=== PATIENT | male | born 1975 | race Caucasian/White ===

== ENCOUNTER 2017-11-05 11:37 | Emergency (ER) | payer BC ==
[2017-11-05 13:09] LABS: Absolute Lymphocytes (CBC) 1.8 K/uL (0.7-4.9); Absolute Monocytes 0.5 K/uL (0.1-1.3); Basophils % 0.7 % (0-1.3); Eosinophils % 1.1 % (0-4.4); Hematocrit 49.9 % (39.6-49.0); Lymphocytes % 32.7 % (15.3-44.8); MCH 31.8 pg (27.0-35.0); MCV 93.7 fL (80-100); MPV 8.2 fL (7.6-11.3); RBC Red Blood Cell Count 5.33 M/uL (4.33-5.43)
[2017-11-05 13:12] LABS: Bicarbonate 30 mEq/L (21-31); Glucose Level 95 mg/dL (65-120); Lipase 30 U/L (22-51); Potassium 3.8 mEq/L (3.6-5.0); Sodium Level 140 mEq/L (135-145)
[2017-11-05 13:17] LABS: ALT/SGPT 26 IU/L (10-60); AST/SGOT 47 IU/L (10-42); Albumin 4.4 g/dL (3.2-5.5); Alkaline Phosphatase 92 IU/L (42-121); BUN Blood Urea Nitrogen 9 mg/dL (6-20); Bilirubin Direct 0.1 mg/dL (0-0.2); Bilirubin Total 0.6 mg/dL (0.3-1.2); Protein, Total 7.8 g/dL (6.0-8.3)
--- NOTE | 2017-11-05 13:56 | ER ---
Nurse's Notes [facility] Name: Gio Aguillon Age: 42 yrs Sex: Male : 1975 Arrival Date: 11/05/2017 Time: 11:41 Bed 20 Private MD: Diagnosis: Gastrointestinal hemorrhage, unspecified Presentation: 11/05 11:58 Presenting complaint: Patient states: "I do drink a whole lot and they said that I lk1 needed to stop that." Significant other states: "For years he has had a lot of bleeding. They say he had hemorrhoids, but I'm telling you he does not. The has had a lot more bleeding that is bright red recently and his blood pressure is high.". Transition of care: patient was not received from another setting of care. Onset of symptoms is unknown. Care prior to arrival: None. 11:58 Method Of Arrival: Ambulatory lk1 11:58 Acuity: WILLIAM 3 lk1 Triage Assessment: 12:01 General: Appears in no apparent distress. Behavior is calm, cooperative, appropriate lk1 for age. Pain: Complains of pain in abdomen Pain currently is 5 out of 10 on a pain scale. Quality of pain is described as burning. GI: Abdomen is non-distended, Reports rectal bleeding. Historical: - Allergies: 12:00 Latex, Natural Rubber; lk1 - PMHx: 12:00 hemorrhoids; etoh abuse; lk1 - PSHx: 12:00 None; lk1 - Immunization history:: Adult Immunizations up to date. - Social history:: Smoking status: Patient uses tobacco products, smokes one pack cigarettes per day. Screenin:01 Abuse screen: Denies threats or abuse. Nutritional screening: No deficits noted. em Tuberculosis screening: No symptoms or risk factors identified. Fall Risk None identified. Assessment: 12:12 General: Appears in no apparent distress. comfortable, Behavior is calm, cooperative, em anxious. Pain: Complains of pain in right upper quadrant and left upper quadrant Pain currently is 5 out of 10 on a pain scale. Quality of pain is described as pressure, Pain began 2-3 days ago. Neuro: Level of Consciousness is awake, alert, obeys commands, Oriented to person, place, time, situation. Cardiovascular: Capillary refill < 3 seconds Patient's skin is warm and dry. Respiratory: Airway is patent Respiratory effort is even, unlabored, Respiratory pattern is regular, symmetrical. GI: Abdomen is flat, Bowel sounds present X 4 quads. Abd is soft and non tender X 4 quads. Reports bloody stool, reports drinking a lot on days off, has had rectal bleeding for over 4 years, but got worse the past few days, denies dizziness or lightheaded. : No signs and/or symptoms were reported regarding the genitourinary system. EENT: No signs and/or symptoms were reported regarding the EENT system. Derm: Skin is intact, Skin is pink, warm \\T\\ dry. Musculoskeletal: Range of motion: intact in all extremities. 12:15 General: The previous assessment is accurate, call light remains within reach. . ss 13:10 Reassessment: Patient appears in no apparent distress at this time. Patient and/or em family updated on plan of care and expected duration. Pain level reassessed. Patient is alert, oriented x 3, equal unlabored respirations, skin warm/dry/pink. Vital Signs: 12:01 BP 148 / 107; Pulse 88; Resp 15; Temp 98.9(TE); Pulse Ox 98% on R/A; Weight 90.72 kg lk1 (R); Height 6 ft. 3 in. (190.50 cm) (R); Pain 5/10; 13:30 BP 132 / 87; Pulse 73; Resp 18; Pulse Ox 97% on R/A; Pain 5/10; em 14:14 BP 127 / 91; Pulse 74; Resp 16; Pulse Ox 97% on R/A; em 12:01 Body Mass Index 25.00 (90.72 kg, 190.50 cm) lk1 ED Course: 11:41 Patient arrived in ED. sb2 12:00 Triage completed. lk1 12:01 Arm band placed on right wrist. lk1 12:03 Leo Shannon MD is Attending Physician. gs 12:18 Atul Yeboah LVN is Primary Nurse. em 12:45 No provider procedures requiring assistance completed. Initial lab(s) drawn, by me, em sent to lab. Inserted saline lock: 20 gauge in right antecubital area, using aseptic technique. Blood collected. 13:01 Patient has correct armband on for positive identification. Call light in reach. Side em rails up X2. Adult w/ patient. 13:54 Prince Poole MD is Referral Physician. gs 13:54 Consuelo Hill DO is Referral Physician. gs 14:30 IV discontinued, intact, bleeding controlled, No redness/swelling at site. Pressure em dressing applied. Administered Medications: No medications were administered Outcome: 13:55 Discharge ordered by MD. gs 14:30 Discharged to home ambulatory. em 14:30 Condition: good 14:30 Discharge instructions given to patient, Instructed on discharge instructions, follow up and referral plans. Demonstrated understanding of instructions, follow-up care. 14:31 Patient left the ED. em Signatures: Atul Yeboah, CONNIE CLEANER CONNIE CLEANER em Adriana Salvador RN RN Jessica Lamb RN RN lk1 Leo Shannon MD MD Mari Saenz sb2
--- NOTE | 2017-11-05 13:56 | EDPHYS ---
Physician Documentation [facility] Name: Gio Aguillon Age: 42 yrs Sex: Male : 1975 Arrival Date: 11/05/2017 Time: 11:41 Bed 20 Private MD: ED Physician Leo Shannon HPI: 11/05 13:49 This 42 yrs old Male presents to ER via Ambulatory with complaints of gs Abdominal Pain, Rectal Bleeding. 13:49 The patient presents to the emergency department with bleeding from the rectum/anus, gs that is mild. Onset: The symptoms/episode began/occurred 2 day(s) ago. Modifying factors: The symptoms are alleviated by nothing, The symptoms are aggravated by bowel movement. Associate signs and symptoms: Pertinent positives: abdominal pain in the right upper quadrant, left upper quadrant, right lower quadrant and left lower quadrant, lower GI bleeding, on toilet paper, Pertinent negatives: constipation. The patient has experienced similar episodes in the past, multiple times, 3 years. The patient has not recently seen a physician. Historical: - Allergies: 12:00 Latex, Natural Rubber; lk1 - PMHx: 12:00 hemorrhoids; etoh abuse; lk1 - PSHx: 12:00 None; lk1 - Immunization history:: Adult Immunizations up to date. - Social history:: Smoking status: Patient uses tobacco products, smokes one pack cigarettes per day. ROS: 13:49 Cardiovascular: Negative for chest pain. gs 13:49 Abdomen/GI: Negative for nausea and vomiting. 13:49 All other systems are negative. Exam: 13:49 Head/Face: Normocephalic, atraumatic. Eyes: Pupils equal round and reactive to light, gs extra-ocular motions intact. Lids and lashes normal. Conjunctiva and sclera are non-icteric and not injected. Cornea within normal limits. Periorbital areas with no swelling, redness, or edema. ENT: Nares patent. No nasal discharge, no septal abnormalities noted. Tympanic membranes are normal and external auditory canals are clear. Oropharynx with no redness, swelling, or masses, exudates, or evidence of obstruction, uvula midline. Mucous membranes moist. Neck: Trachea midline, no thyromegaly or masses palpated, and no cervical lymphadenopathy. Supple, full range of motion without nuchal rigidity, or vertebral point tenderness. No Meningismus. Chest/axilla: Normal chest wall appearance and motion. Nontender with no deformity. No lesions are appreciated. Cardiovascular: Regular rate and rhythm with a normal S1 and S2. No gallops, murmurs, or rubs. Normal PMI, no JVD. No pulse deficits. Respiratory: Lungs have equal breath sounds bilaterally, clear to auscultation and percussion. No rales, rhonchi or wheezes noted. No increased work of breathing, no retractions or nasal flaring. Abdomen/GI: Soft, non-tender, with normal bowel sounds. No distension or tympany. No guarding or rebound. No evidence of tenderness throughout. Back: No spinal tenderness. No costovertebral tenderness. Full range of motion. Skin: Warm, dry with normal turgor. Normal color with no rashes, no lesions, and no evidence of cellulitis. MS/ Extremity: Pulses equal, no cyanosis. Neurovascular intact. Full, normal range of motion. Neuro: Awake and alert, GCS 15, oriented to person, place, time, and situation. Cranial nerves II-XII grossly intact. Motor strength 5/5 in all extremities. Sensory grossly intact. Cerebellar exam normal. Normal gait. 13:49 Constitutional: The patient appears alert, awake. Vital Signs: 12:01 BP 148 / 107; Pulse 88; Resp 15; Temp 98.9(TE); Pulse Ox 98% on R/A; Weight 90.72 kg lk1 (R); Height 6 ft. 3 in. (190.50 cm) (R); Pain 5/10; 13:30 BP 132 / 87; Pulse 73; Resp 18; Pulse Ox 97% on R/A; Pain 5/10; em 14:14 BP 127 / 91; Pulse 74; Resp 16; Pulse Ox 97% on R/A; em 12:01 Body Mass Index 25.00 (90.72 kg, 190.50 cm) lk1 MDM: 12:20 Patient medically screened. 13:49 Differential diagnosis: hemorrhoids, fissure, diverticular disease. Data reviewed: vital signs, nurses notes. Response to treatment: the patient's symptoms have markedly improved after treatment, no bleeding, and as a result, I will discharge patient. 13:55 Counseling: I had a detailed discussion with the patient and/or guardian regarding: the gs presence of at least one elevated blood pressure reading (>120/80) during this emergency department visit. Special discussion: I have referred the patient to see his PCP for further evaluation of high blood pressure. 11/05 12:22 Order name: Basic Metabolic Panel; Complete Time: 13:48 gs 11/05 12:22 Order name: CBC with Diff; Complete Time: 13:48 gs 11/05 12:22 Order name: Hepatic Function; Complete Time: 13:48 gs 11/05 12:22 Order name: Lipase; Complete Time: 13:48 gs 11/05 12:22 Order name: IV Saline Lock; Complete Time: 12:48 gs 11/05 13:28 Order name: Urine Dipstick--Ancillary (enter results); Complete Time: 14:30 bd 11/05 12:22 Order name: Labs collected and sent; Complete Time: 12:48 gs 11/05 12:22 Order name: Urine Dipstick-Ancillary (obtain specimen); Complete Time: 13:26 gs Administered Medications: No medications were administered Disposition: 11/05/17 13:55 Discharged to Home. Impression: Gastrointestinal hemorrhage, unspecified. - Condition is Stable. - Discharge Instructions: Gastrointestinal Bleeding, Managing Your High Blood Pressure. - Work release form, Medication Reconciliation Form, Thank You Letter, Antibiotic Education, Prescription Opioid Use form. - Follow up: Prince Poole MD; When: 2 - 3 days; Reason: Re-evaluation by your physician. Follow up: Consuelo Hill DO; When: 2 - 3 days; Reason: Re-evaluation by your physician. Signatures: Dispatcher [employer] Atul Dillon, DELMAR STINSONN Jessica Jacobs, RN RN lk1 Leo Shannon MD MD gs
[2017-11-05 14:09] LABS: Urine Blood NEGATIVE (NEG); Urine Glucose NEGATIVE (NEG); Urine Protein TRACE (NEG); Urine Specific Gravity 1.015 (1.005-1.030); Urine pH 8.5 (5.0-7.0)
== END 2017-11-05 14:31 | disposition home or self-care (01) ==
LOC: ER 11:37
DX: K92.2 Gastrointestinal hemorrhage, unspecified (principal); F17.210 Nicotine dependence, cigarettes, uncomplicated; Z91.040 Latex allergy status; Z91.048 Other nonmedicinal substance allergy status
CPT/HCPCS: 36415; 80048; 80076; 81003; 83690; 85025; 99283

== ENCOUNTER 2018-01-23 09:19 | Emergency (ER) | payer BC ==
--- NOTE | 2018-01-23 10:36 | EDPHYS ---
Physician Documentation [facility] Name: Gio Aguillon Age: 42 yrs Sex: Male : 1975 Arrival Date: 01/23/2018 Time: 09:20 Bed 6 Private MD: None, None ED Physician Prince Rodrigez HPI: 01/23 10:39 This 42 yrs old Male presents to ER via Ambulatory with complaints of Rash. snw 10:39 The patient's rash thought to be caused by Eczema. The rash is located on the bilateral snw axilla. The rash can be described as papular. Onset: The symptoms/episode began/occurred suddenly. Associated signs and symptoms: Pertinent positives: tenderness. Severity of symptoms: At their worst the symptoms were moderate. Treatment given at home: none. The patient has not experienced similar symptoms in the past. The patient has not recently seen a physician. Historical: - Allergies: 09:35 Latex, Natural Rubber; ss - Home Meds: 09:35 None [Active]; ss - PMHx: 09:35 etoh abuse; hemorrhoids; Hypertension; ss - PSHx: 09:35 None; ss - Immunization history:: Adult Immunizations up to date. - Social history:: Smoking status: Patient uses tobacco products, smokes one pack cigarettes per day. - Ebola Screening: : Patient denies exposure to infectious person Patient denies travel to an Ebola-affected area in the 21 days before illness onset. ROS: 10:39 Constitutional: Negative for fever, chills, and weight loss, Eyes: Negative for injury, snw pain, redness, and discharge, ENT: Negative for injury, pain, and discharge, Neck: Negative for injury, pain, and swelling, Cardiovascular: Negative for chest pain, palpitations, and edema, Respiratory: Negative for shortness of breath, cough, wheezing, and pleuritic chest pain, Abdomen/GI: Negative for abdominal pain, nausea, vomiting, diarrhea, and constipation, Back: Negative for injury and pain, : Negative for injury, bleeding, discharge, and swelling, MS/Extremity: Negative for injury and deformity, Neuro: Negative for headache, weakness, numbness, tingling, and seizure. 10:39 Skin: Positive for rash. Exam: 10:28 Head/Face: Normocephalic, atraumatic. Eyes: Pupils equal round and reactive to light, snw extra-ocular motions intact. Lids and lashes normal. Conjunctiva and sclera are non-icteric and not injected. Cornea within normal limits. Periorbital areas with no swelling, redness, or edema. ENT: Nares patent. No nasal discharge, no septal abnormalities noted. Tympanic membranes are normal and external auditory canals are clear. Oropharynx with no redness, swelling, or masses, exudates, or evidence of obstruction, uvula midline. Mucous membranes moist. Neck: Trachea midline, no thyromegaly or masses palpated, and no cervical lymphadenopathy. Supple, full range of motion without nuchal rigidity, or vertebral point tenderness. No Meningismus. Chest/axilla: Normal chest wall appearance and motion. Nontender with no deformity. No lesions are appreciated. Cardiovascular: Regular rate and rhythm with a normal S1 and S2. No gallops, murmurs, or rubs. Normal PMI, no JVD. No pulse deficits. Respiratory: Lungs have equal breath sounds bilaterally, clear to auscultation and percussion. No rales, rhonchi or wheezes noted. No increased work of breathing, no retractions or nasal flaring. Abdomen/GI: Soft, non-tender, with normal bowel sounds. No distension or tympany. No guarding or rebound. No evidence of tenderness throughout. Back: No spinal tenderness. No costovertebral tenderness. Full range of motion. MS/ Extremity: Pulses equal, no cyanosis. Neurovascular intact. Full, normal range of motion. Neuro: Awake and alert, GCS 15, oriented to person, place, time, and situation. Cranial nerves II-XII grossly intact. Motor strength 5/5 in all extremities. Sensory grossly intact. Cerebellar exam normal. Normal gait. Psych: Awake, alert, with orientation to person, place and time. Behavior, mood, and affect are within normal limits. 10:28 Constitutional: The patient appears alert, awake, smells of alcohol. 10:28 Skin: Appearance: Color: erythematous, abscess, not appreciated, lesion(s), noted, and can be described as erythematous, raised, papules, located on the bilateral axilla. Vital Signs: 09:35 BP 137 / 108 RA Sitting; Pulse 88; Resp 16; Temp 97.6(TE); Pulse Ox 95% on R/A; Weight ss 90.72 kg; Height 6 ft. 3 in. (190.50 cm); Pain 0/10; 09:35 BP 135 / 109; Pulse 90; ss 11:00 BP 127 / 87; Pulse 89; Resp 18; Temp 98.0; Pulse Ox 99% on R/A; ph 09:35 Body Mass Index 25.00 (90.72 kg, 190.50 cm) ss MDM: 09:53 Patient medically screened. snw 10:40 Data reviewed: vital signs, nurses notes. Data interpreted: Pulse oximetry: on room air snw is 95 %. Interpretation: acceptable. Counseling: I had a detailed discussion with the patient and/or guardian regarding: the historical points, exam findings, and any diagnostic results supporting the discharge/admit diagnosis, the presence of at least one elevated blood pressure reading (>120/80) during this emergency department visit, the need for outpatient follow up, to return to the emergency department if symptoms worsen or persist or if there are any questions or concerns that arise at home. Special discussion: Based on the history and exam findings, there is no indication for further emergent testing or inpatient evaluation. I discussed with the patient/guardian the need to see the primary care provider for further evaluation of the symptoms. Administered Medications: 10:43 Drug: Tetanus-Diphtheria Toxoid Adult 0.5 ml {Pattern Drafter: [employer]. Exp: tw2 04/04/2020. Lot #: [id number]. } Route: IM; Site: right deltoid; 10:50 Follow up: Response: No adverse reaction tw2 10:55 Drug: Clindamycin 600 mg {Note: available in 4ml, 2 ml given right gluteus and 2 ml tw2 given in left gluteus.} Route: IM; Site: right gluteus; 11:18 Follow up: Response: No adverse reaction tw2 Disposition: 01/23/18 10:35 Discharged to Home. Impression: FOLLICULITIS. - Condition is Stable. - Discharge Instructions: VIS, Tetanus, Diphtheria (Td) - CDC, Folliculitis. - Prescriptions for Clindamycin HCl 150 mg Oral Capsule - take 2 capsule by ORAL route every 8 hours for 10 days; 60 capsule. Hibiclens - wash 1 application by TOPICAL route 2 times per day; 1 bottle. - Work release form, Medication Reconciliation Form, Thank You Letter, Antibiotic Education, Prescription Opioid Use form. - Follow up: Private Physician; When: 1 - 2 days; Reason: Recheck today's complaints, Continuance of care, Re-evaluation by your physician. Follow up: Emergency Department; When: As needed; Reason: Worsening of condition. Addendum: 01/25/2018 14:41 Co-signature as Attending Physician, Prince Rodrigez MD I agree with the assessment and w a plan of care. Signatures: Leyla Garcia, TERRIE-C SITE LEASING AGENT-Adriana Mcintosh, RN RN Cathryn Linares RN RN Lily Lebron RN RN tw2 Prince Rodrigez MD MD ne Corrections: (The following items were deleted from the chart) 01/23 11:18 10:35 01/23/2018 10:35 Discharged to Home. Impression: FOLLICULITIS. Condition is ph Stable. Forms are Medication Reconciliation Form, Thank You Letter, Antibiotic Education, Prescription Opioid Use. Follow up: Private Physician; When: 1 - 2 days; Reason: Recheck today's complaints, Continuance of care, Re-evaluation by your physician. Follow up: Emergency Department; When: As needed; Reason: Worsening of condition. snw
--- NOTE | 2018-01-23 10:36 | ER ---
Nurse's Notes [facility] Name: Gio Aguillon Age: 42 yrs Sex: Male : 1975 Arrival Date: 01/23/2018 Time: :20 Bed 6 Private MD: None, None Diagnosis: FOLLICULITIS Presentation: 01/23 09:33 Presenting complaint: Patient states: multiple bumps under bilateral axilla that ss started yesterday. Denies fever, drainage. Transition of care: patient was not received from another setting of care. Onset of symptoms was January 22, 2018. Risk Assessment: Do you want to hurt yourself or someone else? Patient reports no desire to harm self or others. Initial Sepsis Screen: Does the patient meet any 2 criteria? No. Patient's initial sepsis screen is negative. Does the patient have a suspected source of infection? No. Patient's initial sepsis screen is negative. Care prior to arrival: None. 09:33 Method Of Arrival: Ambulatory ss 09:33 Acuity: WILLIAM 5 ss Historical: - Allergies: 09:35 Latex, Natural Rubber; ss - Home Meds: 09:35 None [Active]; ss - PMHx: 09:35 etoh abuse; hemorrhoids; Hypertension; ss - PSHx: 09:35 None; ss - Immunization history:: Adult Immunizations up to date. - Social history:: Smoking status: Patient uses tobacco products, smokes one pack cigarettes per day. - Ebola Screening: : Patient denies exposure to infectious person Patient denies travel to an Ebola-affected area in the 21 days before illness onset. Screenin:42 Abuse screen: Denies threats or abuse. Denies injuries from another. Nutritional ph screening: No deficits noted. Tuberculosis screening: No symptoms or risk factors identified. Fall Risk None identified. Assessment: 09:45 General: Appears in no apparent distress. comfortable, slender, Behavior is calm, ph cooperative, appropriate for age, Denies fever, feeling ill. Pain: Complains of pain in [place] axilla. 09:45 Neuro: Level of Consciousness is awake, alert, obeys commands, Oriented to person, ph place, time, situation. Cardiovascular: Capillary refill < 3 seconds Patient's skin is warm and dry. Respiratory: Airway is patent Respiratory effort is even, unlabored, Respiratory pattern is regular, symmetrical. GI: No signs and/or symptoms were reported involving the gastrointestinal system. Derm: Skin is healthy with good turgor, Skin is pink, warm \T\ dry. Rash noted that is red, raised, on right axilla, left axilla. Musculoskeletal: Circulation, motion, and sensation intact. Range of motion: intact in all extremities. 10:41 Reassessment: Patient appears in no apparent distress at this time. Patient and/or ph family updated on plan of care and expected duration. Pain level reassessed. Patient is alert, oriented x 3, equal unlabored respirations, skin warm/dry/pink. Awaiting antibiotics from [facility]. 11:18 Reassessment: Patient appears in no apparent distress at this time. Patient and/or tw2 family updated on plan of care and expected duration. Pain level reassessed. Patient is alert, oriented x 3, equal unlabored respirations, skin warm/dry/pink. Vital Signs: 09:35 BP 137 / 108 RA Sitting; Pulse 88; Resp 16; Temp 97.6(TE); Pulse Ox 95% on R/A; Weight ss 90.72 kg; Height 6 ft. 3 in. (190.50 cm); Pain 0/10; 09:35 BP 135 / 109; Pulse 90; ss 11:00 BP 127 / 87; Pulse 89; Resp 18; Temp 98.0; Pulse Ox 99% on R/A; ph 09:35 Body Mass Index 25.00 (90.72 kg, 190.50 cm) ED Course: 09:20 Patient arrived in ED. sb2 09:20 None, None is Private Physician. sb2 09:35 Triage completed. ss 09:35 Arm band placed on left wrist. ss 09:37 Cathryn Linares, RN is Primary Nurse. ph 09:52 Leyla Garcia FNP-C is PHCP. snw 09:52 Prince Rodrigez MD is Attending Physician. snw 10:42 Patient has correct armband on for positive identification. Placed in gown. Bed in low ph position. Call light in reach. Side rails up X 1. Pulse ox on. NIBP on. Warm blanket given. 10:42 No provider procedures requiring assistance completed. Patient did not have IV access ph during this emergency room visit. 10:57 Awaiting: IV abx observation prior to discharge. tw2 Administered Medications: 10:43 Drug: Tetanus-Diphtheria Toxoid Adult 0.5 ml {Paint Brush Maker: [employer]. Exp: tw2 04/04/2020. Lot #: [id number]. } Route: IM; Site: right deltoid; 10:50 Follow up: Response: No adverse reaction tw2 10:55 Drug: Clindamycin 600 mg {Note: available in 4ml, 2 ml given right gluteus and 2 ml tw2 given in left gluteus.} Route: IM; Site: right gluteus; 11:18 Follow up: Response: No adverse reaction tw2 Outcome: 10:35 Discharge ordered by . snashley 11:17 Discharged to home ambulatory, with significant other. tw2 11:17 Condition: stable 11:17 Discharge instructions given to patient, significant other, Instructed on discharge instructions, follow up and referral plans. medication usage, Demonstrated understanding of instructions, follow-up care, medications, Prescriptions given X 2. 11:18 Patient left the ED. ph Addendum: 01/27/2018 15:58 Addendum: Other pt work note was changed to return to work on Sunday01-28-18, signed by ANDERSON Pérez. Signatures: Leyla Garcia, PLATE FINISHER-C PLATE FINISHER-Csnw Geena Nair, KILEY CAO Adriana Salvador RN RN ss Hall, Patricia, RN RN ph Wise, Tara, RN RN tw2 Mari Saenz 2
[2018-01-23] MEDS ORDERED: TETANUS & DIPHTHERIA TOX,ADULT 0.5 ML VIAL ONE (10:41)
[2018-01-23] MEDS ORDERED: CLINDAMYCIN IV 150 MG/ML (4 mL) VIAL ONE (10:53)
== END 2018-01-23 11:18 | disposition home or self-care (01) ==
LOC: ER 09:19
DX: L73.9 Follicular disorder, unspecified (principal); F17.210 Nicotine dependence, cigarettes, uncomplicated; I10 Essential (primary) hypertension; Z23 Encounter for immunization; Z91.040 Latex allergy status
CPT/HCPCS: 90714; 96372; 99283; S0077